=== PATIENT | female | born 1965 | race Caucasian/White ===

== ENCOUNTER 2019-11-16 06:36 | Emergency (ER) | payer OTHER, SELFPAY ==
--- NOTE | 2019-11-16 06:42 | ED.UPPEXIN ---
HPI - Extremity Injury (Upper) General Chief Complaint: Extremity Injury, Upper Stated Complaint: Right wrist pain since yesterday Time Seen by Provider: 11/16/19 06:40 Source: patient Mode of arrival: Ambulatory Limitations: no limitations History of Present Illness HPI narrative: 54F former smoker with history of hypothyroid presents with wrist pain after a fall while hiking a few days ago. Since her fall (from standing) she's had a day and a half of worsening pain with ROM. She denies numbness, tingling, or weakness. She denies any other injury. She denies any history of the same. She is right handed. She has taken Advil with minimal relief MD complaint: injury to: right Onset (ago): day(s) Other injuries: none Handedness: right Place: outdoors Severity: mild Relieving factors: medication and rest Exacerbating factors: movement of extremity Context: fall and direct blow Associated symptoms: denies other symptoms Related Data Home Medications Medication Instructions Recorded Confirmed levothyroxine 137 mcg tablet 137 mcg PO DAILY 12/28/18 04/18/19 methylphenidate HCl 36 mg 36 mg PO DAILY 04/18/19 04/18/19 tablet,extended release 24 hr Previous Rx's Medication Instructions Recorded erythromycin 5 mg/gram (0.5 %) eye 1 cm EYE-LEFT Q8H #1 gram 04/18/19 ointment Allergies Allergy/AdvReac Type Severity Reaction Status Date / Time hydrocodone Allergy Unknown Unknown Verified 04/18/19 09:30 Review of Systems Constitutional Constitutional: Denies chills, Denies fatigue, Denies fever(s), Denies frequent falls, Denies lethargy and Denies weakness Eyes Eyes: Denies change in vision, Denies eye discharge, Denies irritation and Denies loss of vision ENT Ears, Nose, Mouth, and Throat: Denies change in voice, Denies dizziness, Denies neck pain, Denies sore throat and Denies throat swelling Cardiovascular Cardiovascular: Denies chest pain, Denies irregular heart rhythm, Denies lightheadedness, Denies palpitations, Denies dyspnea, Denies dyspnea on exertion and Denies orthopnea Respiratory Respiratory: Denies cough, Denies dyspnea, Denies dyspnea on exertion and Denies wheezing Gastrointestinal Gastrointestinal: Denies abdominal pain, Denies change in bowel habits, Denies diarrhea, Denies nausea and Denies vomiting Genitourinary Genitourinary: Denies hematuria, Denies flank pain, Denies urinary incontinence and Denies urinary urgency Musculoskeletal Musculoskeletal: Denies back pain, Reports limited range of motion, Denies muscle weakness, Denies neck pain, Denies numbness and Denies tingling Integumentary/Breasts Skin/Breast: Denies pruritus, Denies erythema, Denies rash and Denies wounds Neurologic Neurologic: Denies behavioral changes, Denies confusion, Denies dizziness, Denies frequent falls, Denies loss of vision, Denies numbness, Denies tingling and Denies weakness Psychiatric Psychiatric: Denies anxiety, Denies behavioral changes, Denies confusion, Denies depression, Denies homicidal ideation and Denies suicidal ideation Endocrine Endocrine: Denies fatigue, Denies flushing and Denies palpitations Hematologic/Lymphatic Hematologic/Lymphatic: Denies easy bruising Allergic/Immunologic Allergic/Immunologic: Denies urticaria, Denies throat swelling and Denies wheezing Patient History Social History Smoking Status: Former smoker Smoking Status: Former smoker Exam Narrative Exam Narrative: GEN: AOx3 and in mild distress EYES: Pupils are equal, round, and reactive to light and accommodation. Extraoccular muscles are intact bilaterally. There is no subconjunctival hemorrhage or exudate. CHEST: Lungs are clear to auscultation bilaterally and free of wheezes, rales, or rhonchi. Heart rate is regular rhythm, there are no murmurs, clicks, rubs, or gallops. There is no chest wall tenderness. ABD: Abdomen is soft and nontender. There is no guarding or rebound. Bowel sounds are normal in all 4 quadrants. There is no mass or organomegaly. EXT: Decreased ROM of wrist secondary to pain. Minimal ecchymosis over lying proximal thenar eminence. Minimal tenderness to palpation of anatomic snuff box with mild tenderness with axial loading of thumb. Pain with active pronation and suppination of wrist. Closed, isolated, NV in tact. SKIN: Warm, pink, and dry. No erythema or rash Initial Vital Signs Initial Vital Signs: Vital Signs Temperature 97.8 F 11/16/19 06:44 Pulse Rate 78 11/16/19 06:44 Respiratory Rate 15 11/16/19 06:44 Blood Pressure 151/73 H 11/16/19 06:44 Pulse Oximetry 100 11/16/19 06:44 Procedures Orthopedic Splinting/Casting Injury #1: Side: right Upper Extremity Injury Location: wrist Upper Extremity Immobilizer: thumb spica Post splinting neuro exam: intact Post splinting vascular exam: intact Placed by: Nursing Course Orders Ordered: ED Orders 11/16/19 06:47 XR wrist RT min 3V Stat Vital Signs Vital signs: Vital Signs - 8 hr 11/16/19 06:44 Temperature 97.8 F Pulse Rate 78 Respiratory Rate 15 Blood Pressure 151/73 H Pulse Oximetry 100 [facility] - Extremity Injury (Upper) Imaging Data Extremity x-ray #1: Attestation: I personally reviewed and interpreted this imaging study as follows: My Impression: possible cortical disruption of scaphoid Radiologist's Impression: Adrianne Loaiza 54 F 1965 [place] [address] XRay Report Signed Patient: JosseAdrianne BMR#: [id number] : 1965Acct:[id number] Age/Sex: 54 / FDate of Service: 11/16/19 Loc: ED Accession Number: [id number] Procedure: XR wrist RT min 3V Ordering Provider: Tyler De Leon D.O. PROCEDURE: XR WRIST RT MIN 3V INDICATIONS: fall with wrist pain, swelling, discoloration over distal radius TECHNIQUE: 4 views of the wrist were acquired. COMPARISON: None. FINDINGS: Bones: No fractures or dislocations. No suspicious bony lesions. Scaphoid view: Scaphoid is intact. Soft tissues: No suspicious soft tissue calcifications. IMPRESSION: No fracture. No osseous lesion. If symptoms and/or clinical suspicion for pathology persists, further assessment with repeat radiographs (7-10 days) or advanced imaging (e.g. CT, MRI or bone scan) may be helpful. Dictated by: Chantal Garcia MD, PhD on 11/16/2019 at 9:06 [facility] Narrative Medical decision making narrative: concern for scaphoid fracture given pain in snuff box and with axial load. Will splint and encourage close follow up with likely repeat xray. She understands the concern and importance of follow up for possible scaphoid injury as she had looked it up ahead of time and understands possible complications of avascular injury and poor healing. Return precautions given and questions answered to her apparent satisfaction. Discharge Plan Departure Patient Disposition: Home Clinical Impression: Sprain and strain of wrist Scaphoid fracture, wrist, closed Qualifiers: Encounter type: initial encounter Scaphoid bone location: middle third Fracture alignment: nondisplaced Laterality: right Qualified Code(s): S62.024A - Nondisplaced fracture of middle third of navicular [scaphoid] bone of right wrist, initial encounter for closed fracture Discharge Date/Time: 11/16/19 07:38 Instructions: Wrist Fracture Activity Restrictions/Additional Instructions: *You have been diagnosed with [wrist pain likely from contusion and sprain, however there is suspicion of possible scaphoid fracture which will require close follow-up as we discussed] *What to do: *Take medications as directed: Tylenol or Motrin for pain *Follow up with your primary care provider in 2-3 days, call for an appointment. Let them know you were seen in the Emergency Department and that we ask that you be seen in follow up. Additionally I have given you contact information for [facility] which would be another very appropriate place for follow-up *Return to ER if you should have any new, worsening or concerning symptoms Radiographic study has been interpreted by an emergency physician. The official diagnosis by radiology will be performed within the next 24 hours and should there be any change in outcome we will notify you of how to proceed. Prescriptions: No Action methylphenidate HCl [Concerta] 36 mg tablet extended release 24hr 36 mg PO DAILY RF: 0 erythromycin 5 mg/gram (0.5 %) ointment 1 cm EYE-LEFT Q8H Qty: 1 RF: 0 levothyroxine 137 mcg tablet 137 mcg PO DAILY RF: 0 Referrals: Nupur Yap MD [Primary Care Provider] - Ab Whitaker MD [Physician] -
[2019-11-16 06:44] VITALS: BP 151/73; PULSE 78; RESP 15; TEMP 36.6; O2SAT 100; BMI 25.8
--- NOTE | 2019-11-16 06:47 | DI.RAD.S_ITS ---
PROCEDURE: XR WRIST RT MIN 3V INDICATIONS: fall with wrist pain, swelling, discoloration over distal radius TECHNIQUE: 4 views of the wrist were acquired. COMPARISON: None. FINDINGS: Bones: No fractures or dislocations. No suspicious bony lesions. Scaphoid view: Scaphoid is intact. Soft tissues: No suspicious soft tissue calcifications. IMPRESSION: No fracture. No osseous lesion. If symptoms and/or clinical suspicion for pathology persists, further assessment with repeat radiographs (7-10 days) or advanced imaging (e.g. CT, MRI or bone scan) may be helpful. Dictated by: Chantal Garcia MD, PhD on 11/16/2019 at 9:06 Approved by: Chantal Garcia MD, PhD on 11/16/2019 at 9:07
[2019-11-16 07:37] VITALS: BP 151/73; PULSE 72; RESP 12
== END 2019-11-16 07:38 | disposition home or self-care (01) ==
PROVIDERS: Emergency Provider Emergency Medicine; Family Provider Family Medicine; PCP Family Medicine
DX: S62.024A Nondisplaced fracture of middle third of navicular [scaphoid] bone of right wrist, initial encounter for closed fracture (principal); S63.501A Unspecified sprain of right wrist, initial encounter; S66.911A Strain of unspecified muscle, fascia and tendon at wrist and hand level, right hand, initial encounter; W19.XXXA Unspecified fall, initial encounter; Y93.01 Activity, walking, marching and hiking
CPT/HCPCS: 73110; 99282; 99283

== ENCOUNTER → 2019-11-23 07:56 | Outpatient (CLI) | payer OTHER, SELFPAY ==
--- NOTE | 2019-11-23 | DI.RAD.S_ITS ---
PROCEDURE: XR WRIST RT MIN 3V INDICATIONS: Pain in right wrist TECHNIQUE: 4 views of the wrist were acquired. COMPARISON: [facility], , XR WRIST RT MIN 3V, 11/16/2019, 6:53. FINDINGS: Bones: No fractures or dislocations. No suspicious bony lesions. First CMC and triscaphe joint degeneration. Faint calcifications project along the radial aspect of the triscaphe joint Soft tissues: No suspicious soft tissue calcifications. IMPRESSION: No evidence of occult fracture. If the patient's pain or other symptoms persist, consider further evaluation with MRI Dictated by: Mg Leonardo M.D. on 11/23/2019 at 10:27 Approved by: Mg Leonardo M.D. on 11/23/2019 at 10:29
== END ==
PROVIDERS: Family Provider Family Medicine; PCP Family Medicine; Referring Provider Family Medicine; Visit Provider Family Medicine
DX: M25.531 Pain in right wrist (principal); M18.11 Unilateral primary osteoarthritis of first carpometacarpal joint, right hand
CPT/HCPCS: 73110

== ENCOUNTER → 2023-10-11 08:41 | Outpatient (CLI) | payer OTHER, SELFPAY ==
--- NOTE | 2023-10-11 08:42 | DI.MG.S_ITS ---
BILATERAL DIGITAL SCREENING MAMMOGRAM 3D/2D WITH CAD: 10/11/2023 CLINICAL: Routine screening. Family history of breast cancer. Default Baseline. No prior exams were available for comparison. There are scattered areas of fibroglandular density in both breasts (category b / 25%-50% glandular tissue). Current study was also evaluated with a Computer Aided Detection (CAD) system. No significant masses, calcifications, or other findings are seen in either breast. IMPRESSION: NEGATIVE There is no mammographic evidence of malignancy. A 1 year screening mammogram is recommended. Based on the Tyrer Cuzick model (a risk assessment model) the patient's lifetime risk is 6.3% and her 10 year risk is 2.1%. According to the ACR, ACS, and NCCN guidelines, an annual breast MRI exam along with mammogram is recommended if the patient's lifetime risk is 20% or greater. This exam was interpreted at Station ID: [id number]. NOTE: For mammograms, a report in lay terms will be sent to the patient. Approximately 15% of breast malignancies will not be visualized mammographically. In the management of a palpable breast mass, a negative mammogram must not discourage biopsy of a clinically suspicious lesion. Electronically Signed By: Petey mitchell/syeda:10/13/2023 07:40:47 letter sent: Normal Exam ACR BI-RADS Category 1: Negative [id number]
== END ==
PROVIDERS: Family Provider Family Medicine; PCP Family Medicine; Referring Provider Family Medicine; Visit Provider Family Medicine
DX: Z12.31 Encounter for screening mammogram for malignant neoplasm of breast (principal); Z80.3 Family history of malignant neoplasm of breast; R92.323 Mammographic fibroglandular density, bilateral breasts
CPT/HCPCS: 77063; 77067

== ENCOUNTER → 2023-12-12 07:30 | Outpatient (CLI) | payer OTHER, SELFPAY ==
[2023-12-12 09:07] LABS: Alanine Aminotransferase 17 IU/L (<35); Albumin 4.3 g/dL (3.5-5.0); Albumin Globulin Ratio 1.8 (1.0-2.8); Alkaline Phosphatase 74 U/L (38-126); Aspartate Aminotransferase 23 IU/L (14-36); BUN Creatinine Ratio 12.1 (6-22); Bilirubin Total 0.7 mg/dL (0.2-1.3); Blood Urea Nitrogen 8 mg/dL (7-17); Calcium 9.3 mg/dL (8.4-10.2); Carbon Dioxide 29 mmol/L (22-32); Chloride 107 mmol/L (98-107); Cholesterol 225 mg/dL (140-199); Estimated Glomerular Filt Rate > 60 mL/min (>60); Globulin 2.4 g/dL (1.7-4.1); Glucose 94 mg/dL (70-100); HDL Cholesterol 101 mg/dL (40-60); HEMOLYSIS < 15 (0-50); LDL Cholesterol Calculated 115 mg/dL (<100); Potassium 4.9 mmol/L (3.4-5.1); Sodium 140 mmol/L (137-145); Total Protein 6.7 g/dL (6.3-8.2); Triglycerides 46 mg/dL (35-150)
== END ==
PROVIDERS: Family Provider Family Medicine; PCP Family Medicine; Referring Provider Family Medicine; Visit Provider Family Medicine
DX: E78.5 Hyperlipidemia, unspecified (principal); E03.9 Hypothyroidism, unspecified; R53.82 Chronic fatigue, unspecified
CPT/HCPCS: 36415; 80053; 80061

== ENCOUNTER 2024-02-27 11:30 | Day surgery (SDC) | payer OTHER, SELFPAY ==
--- NOTE | 2024-02-27 | PATH_ITS ---
[facility] Accession Number: [id number] No. of containers..01 Tissue . 01 Material submitted: . colon - SIGMOID COLON POLYP . 01 Diagnosis: SIGMOID COLON POLYP: Tubular adenoma. MRV 03/03/2024 1251 Local . 01 Electronically signed: . Guero Saleem MD, PhD, Pathologist NPI- [id number] . 01 Gross description: . SIGMOID COLON POLYP: Received in formalin are 2 fragment(s) of urbano, soft tissue measuring 0.4 x 0.3 x 0.2 cm to 0.8 x 0.7 x 0.6 cm submitted entirely in 1 cassette(s) /SHERON 03/02/2024 0055 Local . 01 Pathologist provided ICD-10: D12.5 . 01 CPT . 114899 Specimen Comment: A courtesy copy of this report has been sent to [phone] Performed at: [address] [id number] MD Kiran Del Angel MD Phone: [phone]
[2024-02-27 11:47] VITALS: BP 145/87; PULSE 102; RESP 16; TEMP 36.8; O2SAT 99
[2024-02-27] MEDS: LACTATED RINGERS 1,000 ML 42 ML IV (12:03)
--- NOTE | 2024-02-27 12:32 | PM.HP.1 ---
History of Present Illness History of Present Illness Date Patient Seen: 02/27/24 Time Patient Seen: 12:33 Chief complaint: Colonoscopy Narrative: 59-year-old woman here for 1st time screening colonoscopy. No abdominal concerns today. No family history of colon cancer. [facility] Medical History (Updated 10/03/23 @ 09:04 by Joselo Green DO) Hypothyroidism Hyperlipidemia Social History Smoking Status: Former smoker alcohol intake: current Meds Home Medications and Allergies Home Medications Medication Instructions Recorded Confirmed Type levothyroxine 125 mcg tablet 125 mcg PO DAILY Hypothyroidism 10/03/23 10/03/23 History liothyronine 5 mcg tablet 10 mcg PO DAILY Hypothyroidism 10/03/23 10/03/23 History naltrexone 1.5 mg capsule 3 mg PO DAILY 10/03/23 10/03/23 History peg 3350-sod sulf,nbuzs-lvz-omg 1,000 ml PO DIRECTED #2,000 mL 11/27/23 Rx 178.7-7.3-0.5-1.12-0.9 gram oral soln (Suflave) Allergies Allergy/AdvReac Type Severity Reaction Status Date / Time hydrocodone Allergy Unknown Unknown Verified 02/27/24 11:46 Exam Vital Signs (past 8 hours): - 02/27/24 11:47 Temperature 98.2 F Pulse Rate 102 H Respiratory Rate 16 Blood Pressure 145/87 H Pulse Oximetry 99 Oxygen Delivery Method Room Air Oxygen Delivery Method Room Air Narrative Exam Narrative: General adult woman alert oriented no acute distress Chest nonlabored respiration Extremities warm well perfused Assessment & Plan Assessment & Plan narrative: The patient requires colorectal screening and colonoscopy is recommended. Technical details were discussed. Risks, benefits, alternatives explained. Risks including but not limited to myocardial infarction, aspiration, bleeding, pain, missed lesion, incomplete examination, need for further radiographic studies, intestinal injury, and need for major abdominal surgery were discussed. All questions were answered to their satisfaction, and they are in agreement with this plan. Time-Based Coding :: [TOTAL MINUTES] spent with patient and on the chart (including review of chart, obtaining history, exam, reviewing outside data, placing orders, documenting exam and treatment plan, and counseling patient) on [DATE].
[2024-02-27 12:57] VITALS: BP 120/71; PULSE 102; RESP 10; TEMP 36.6; O2SAT 96
--- NOTE | 2024-02-27 13:00 | P.OP.COLON_ITS ---
Operative Date/Time/Diagnoses Date of procedure: 02/27/24 Time of procedure: 13:00 Pre-op diagnosis: Colorectal screening Post-op diagnosis: other (Colonic polyp x1) Procedure & Clinicians Study performed: Screening colonoscopy Same procedure as scheduled: Yes Indications: Screening Surgeon: Brayden Zurita Procedure Notes Procedure in detail: The history and physical was performed/updated and the patient is ASA class is 2. The procedure was discussed in detail with the patient. Potential risks complications including infection, bleeding, missed diagnosis, perforation, need for surgery, and were explained. Their questions were answered and informed consent was obtained. Patient was brought to the procedure room and placed standard monitoring equipment. The patient's vital signs were monitored continuously throughout the entire procedure. Prior to starting time-out was performed. The patient was placed in the left lateral recumbent position. Procedural sedation was administered by anesthesia. Examination began with a thorough inspection of the perianal area there was no evidence of fissures, fistulae, external hemorrhoids or cutaneous malignancy. The colonoscopy scope was then placed into the anal canal and was advanced to the cecum, which was identified by the ileocecal valve, the appendiceal orifice and the confluence of the taenia. The scope was then slowly withdrawn examining colon thoroughly in all directions, irrigating it of any residual stool. The scope was retroflexed within the rectum The patient tolerated the procedure well. They will be discharged once criteria are met. The prep was of good/excellent quality. The withdrawl time was 9 minutes. FINDINGS * Sigmoid polyp 1 cm pedunculated removed with cold snare. Specimen(s): other (Sigmoid polyp) Impression: Colonic polyp x1 Post-procedure Plan for aftercare: Follow-up is dependent on pathology findings Disposition: same day surgery
[2024-02-27 13:01] VITALS: BP 99/67; PULSE 82; RESP 17; O2SAT 98
[2024-02-27 13:05] VITALS: BP 114/73; PULSE 75; RESP 12; O2SAT 97
== END 2024-02-27 13:30 | disposition home or self-care (01) ==
PROVIDERS: Family Provider Family Medicine; PCP Family Medicine; Referring Provider Surgery; Visit Provider Surgery
PROC: 0DJD8ZZ Inspection of Lower Intestinal Tract, Via Natural or Artificial Opening Endoscopic (ICD-10-PCS; CPT 45378; principal; 2024-02-27 12:30)
DX: Z12.11 Encounter for screening for malignant neoplasm of colon (principal); D12.5 Benign neoplasm of sigmoid colon
CPT/HCPCS: 45385; J2704

== ENCOUNTER → 2024-10-01 10:44 | Outpatient (CLI) | payer OTHER, SELFPAY ==
--- NOTE | 2024-10-01 10:45 | DI.US.S_ITS ---
PROCEDURE: US THYROID INDICATIONS: AUTOIMMUNE THYROIDITIS TECHNIQUE: Real-time scanning was performed of the thyroid gland, with image documentation. COMPARISON: None. FINDINGS: Thyroid: Right lobe measures 4.4 x 1.4 x 1.7 cm. Left lobe measures 2.3 x 0.9 x 0.7 cm. Isthmus is 7.1 cm thick. Echotexture is heterogeneous. No focal thyroid nodules are seen. No abnormal vascularity can be seen of the thyroid. IMPRESSION: Heterogeneous thyroid, yet without focal nodules. Atrophic left thyroid lobe. ACR TI-RADS definitions and recommendations: TI-RADS 1 (benign): 0 points. FNA not needed. TI-RADS 2 (not suspicious): 2 points. FNA not needed. TI-RADS 3: 3 points. * FNA if 2.5 cm or larger, follow up if 1.5 cm or larger (at 1, 3, and 5 years). TI-RADS 4: 4-6 points. * FNA if 1.5 cm or larger, follow up if 1 cm or larger (at 1, 2, 3, and 5 years). TI-RADS 5: 7 points or more. * FNA if 1 cm or larger, follow up if 0.5 cm or larger (every year for 5 years). Dictated by: Chaparro Huber M.D. on 10/01/2024 at 10:36 Approved by: Chaparro Huber M.D. on 10/01/2024 at 10:38
== END ==
PROVIDERS: Family Provider Family Medicine; PCP Family Medicine; Referring Provider Naturopath; Visit Provider Naturopath
DX: E06.3 Autoimmune thyroiditis (principal); E03.4 Atrophy of thyroid (acquired)
CPT/HCPCS: 76536